=== PATIENT | male | born 1965 | race Caucasian/White ===

== ENCOUNTER 2017-08-18 16:12 | Emergency (ER) | payer MEDICAID ==
[2017-08-18] MEDS: Sodium Chloride 0.9% 1,000 ML IV SCH ×2 (16:12→17:10)
[2017-08-18] MEDS ORDERED: Sodium Chloride 0.9% 10 ML Syringe FLUSH PRN (16:20)
[2017-08-18] MEDS ORDERED: Ondansetron 4 MG/2 ML SDV IVPUSH ONE (16:20)
--- NOTE | 2017-08-18 17:20 | EDM.PDOC ---
ED HPI GENERAL MEDICAL PROBLEM - General Chief Complaint: General Stated Complaint: diaphoretic headache Time Seen by Provider: 08/18/17 16:12 Source of Information: Reports: Patient, Family History Limitations: Reports: No Limitations - History of Present Illness INITIAL COMMENTS - FREE TEXT/NARRATIVE: Patient is a 52 year old man with a history of Paroxysmal Atrial Fibrillation according to patient and his . He is on metoprolol for the palpitations that occur with the atrial fibrillation. Today at 14:30 he was working on a tractor in his shop when he had an acute onset of severe headache, chest pressure, severe diaphoresis, dyspnea and radiation of the chest pressure down the left arm. He did get better with the headache and dizzyness when he laid down on the cart in the ED. He also had nausea associated with his symptoms. Onset: Today, Sudden Onset Date: 08/18/17 Onset Time: 14:30 Duration: Hour(s): (2), Constant Location: Reports: Head, Chest Quality: Reports: Ache (Headache.), Pressure (Chest) Severity: Severe Improves with: Reports: Rest Worsens with: Reports: Movement Context: Reports: Other (History of Atrial Fibrillation.) Associated Symptoms: Reports: Chest Pain (Pressure radiating into left arm.), Nausea/Vomiting, Shortness of Breath - Related Data Allergies Allergy/AdvReac Type Severity Reaction Status Date / Time No Known Allergies Allergy Verified 11/10/13 17:59 Home Meds: Home Meds Metoprolol Tartrate [Lopressor] 25 mg PO Q12HR #60 tab 11/11/13 [Rx] Social & Family History - Tobacco Use Years of Tobacco use: 20 Used Tobacco, but Quit: No Second Hand Smoke Exposure: No - Alcohol Use Days Per Week of Alcohol Use: 7 Number of Drinks Per Day: 4 Total Drinks Per Week: 28 - Recreational Drug Use Recreational Drug Use: Yes Drug Use in Last 12 Months: Yes Recreational Drug Type: Reports: Marijuana/Hashish Recreational Drug Use Frequency: Socially ED ROS GENERAL - Review of Systems Review Of Systems: See Below Constitutional: Reports: Diaphoresis HEENT: Reports: Vertigo, Other (Headache.) Respiratory: Reports: Shortness of Breath Cardiovascular: Reports: Chest Pain (Chest pressure radiating to the left arm.) Endocrine: Reports: No Symptoms GI/Abdominal: Reports: Nausea : Reports: No Symptoms Musculoskeletal: Reports: No Symptoms Skin: Reports: No Symptoms Neurological: Reports: Headache Psychiatric: Reports: No Symptoms Hematologic/Lymphatic: Reports: No Symptoms ED EXAM, GENERAL - Physical Exam Exam: See Below Exam Limited By: No Limitations General Appearance: Alert, WD/WN, No Apparent Distress Eye Exam: Bilateral Eye: EOMI, Normal Fundi, Normal Inspection, PERRL Ears: Normal External Exam, Normal Canal, Hearing Grossly Normal, Normal TMs Ear Exam: Bilateral Ear: Auricle Normal, Canal Normal, TM normal Nose: Normal Inspection, Normal Mucosa, No Blood Throat/Mouth: Normal Inspection, Normal Lips, Normal Teeth, Normal Gums, Normal Oropharynx, Normal Voice, No Airway Compromise Head: Atraumatic, Normocephalic Neck: Normal Inspection, Supple, Non-Tender, Full Range of Motion Respiratory/Chest: No Respiratory Distress, Lungs Clear, Normal Breath Sounds, No Accessory Muscle Use, Chest Non-Tender Cardiovascular: Normal Peripheral Pulses, No Edema, No Gallop, No JVD, No Murmur , No Rub, Bradycardia Peripheral Pulses: 2+: Posterior Tibial (L), Posterior Tibial (R), Dorsalis Pedis (L), Dorsalis Pedis (R) GI/Abdominal: Normal Bowel Sounds, Soft, Non-Tender, No Organomegaly, No Distention, No Abnormal Bruit, No Mass Back Exam: Normal Inspection, Full Range of Motion, NT Extremities: Normal Inspection, Normal Range of Motion, Non-Tender, Normal Capillary Refill, No Pedal Edema Neurological: Alert, Oriented, CN II-XII Intact, Normal Cognition, Normal Gait, Normal Reflexes, No Motor/Sensory Deficits Psychiatric: Normal Affect, Normal Mood Skin Exam: Warm, Dry, Intact, Normal Color, No Rash Lymphatic: No Adenopathy EKG INTERPRETATION EKG Date: 08/18/17 Rhythm: NSR Rate (Beats/Min): 50 Clawson: Normal P-Wave: Variable QRS: RBBB (Incomplete.) ST-T: Normal QT: Normal Comparison: NA - No Prior EKG Course - Vital Signs Text/Narrative:: Uneventful ED course. He improved with IV fluids, Aspirin and close monitoring. His headache got much better once he laid down and closed his eyes. His EKG showed variable p waves and his heart rate went down to 40. His chest pressure got better during the visit. He was accepted in transfer by [facility] to [facility] for further evaluation and treatment in the ICU by the hospitalist and camp director. - Orders/Labs/Meds Orders: Active Orders 24 hr Category Date Time Status EKG Documentation Completion [RC] ASDIRECTED Care 08/18/17 16:19 Active Chest 1V Frontal [CR] Stat Exams 08/18/17 16:17 Taken Sodium Chloride 0.9% [Normal Saline] 1,000 ml Med 08/18/17 16:30 Active IV ASDIRECTED Sodium Chloride 0.9% [Saline Flush] Med 08/18/17 16:20 Active 10 ml FLUSH ASDIRECTED PRN Saline Lock Insert [OM.PC] Routine Oth 08/18/17 16:20 Ordered Medication Orders Sodium Chloride (Normal Saline) 1,000 mls @ 1,000 mls/hr IV ASDIRECTED NOREEN Sodium Chloride (Saline Flush) 10 ml FLUSH ASDIRECTED PRN PRN Reason: Keep Vein Open Labs: Laboratory Tests 08/18/17 08/18/17 Range/Units 16:15 16:15 WBC 9.9 D (4.0-11.0) K/uL RBC 5.09 (4.50-6.50) M/uL Hgb 15.1 (13.0-18.0) g/dL Hct 44.3 (40.0-54.0) % MCV 87 (76-96) fL MCH 29.7 (27.0-32.0) pg MCHC 34.1 (31.0-35.0) g/dL RDW 13.6 (11.0-16.0) % Plt Count 248 (150-400) K/uL MPV 8.8 (6.0-10.0) fL Neut % (Auto) 56.9 (45.0-70.0) % Lymph % (Auto) 31.7 (20.0-40.0) % Gregory % (Auto) 9.9 (3.0-10.0) % Eos % (Auto) 1.2 (1.0-5.0) % Baso % (Auto) 0.3 (0.0-0.5) % Neut # (Auto) 5.61 (2.00-7.50) K/uL Lymph # (Auto) 3.13 (1.50-4.00) K/uL Gregory # (Auto) 0.98 H (0.20-0.80) K/uL Eos # (Auto) 0.12 (0.04-0.40) K/uL Baso # (Auto) 0.03 (0.02-0.10) K/uL Sodium 144 (136-145) mmol/L Potassium 3.5 (3.5-5.1) mmol/L Chloride 107 (98-107) mmol/L Carbon Dioxide 24.5 (21.0-32.0) mmol/L Anion Gap 16.0 H (5.0-15.0) mmol/L BUN 22 D (8-26) mg/dL Creatinine 1.22 D (0.70-1.30) mg/dL Est Cr Clr Drug Dosing TNP Estimated GFR (MDRD) > 60 (>60) MLS/MIN BUN/Creatinine Ratio 18.0 (6-25) Glucose 134 H (74-100) mg/dL Calcium 8.5 (8.5-10.1) mg/dL Total Bilirubin 0.6 (0.0-1.0) mg/dL AST 22 (15-37) U/L ALT 25 (12-78) U/L Alkaline Phosphatase 58 (46-116) U/L Troponin I < 0.017 (0.000-0.060) ng/mL Total Protein 6.7 (6.4-8.2) g/dL Albumin 3.7 (3.4-5.0) g/dL Globulin 3.0 (2.2-4.2) g/dL Albumin/Globulin Ratio 1.2 (0.8-2.0) Meds: Medications Generic Name Dose Route Start Last Admin Trade Name Freq PRN Reason Stop Dose Admin Sodium Chloride 1,000 mls @ 1,000 mls/hr 08/18/17 16:30 Normal Saline IV ASDIRECTED NOREEN Sodium Chloride 10 ml 08/18/17 16:20 Saline Flush FLUSH ASDIRECTED PRN Keep Vein Open Discontinued Medications Generic Name Dose Route Start Last Admin Trade Name Freq PRN Reason Stop Dose Admin Ondansetron HCl 4 mg 08/18/17 16:20 Zofran IVPUSH 08/18/17 16:21 ONETIME ONE Departure - Departure Time of Disposition: 17:28 Disposition: DC/Tfer to Hospice - Home 50 Condition: Fair Clinical Impression: Angina pectoris, unstable, Diaphoresis - Discharge Information Referrals: PCP,None [Primary Care Provider] - - My Orders Last 24 Hours: My Active Orders 08/18/17 16:17 Chest 1V Frontal [CR] Stat 08/18/17 16:19 EKG Documentation Completion [RC] ASDIRECTED 08/18/17 16:20 Sodium Chloride 0.9% [Saline Flush] 10 ml FLUSH ASDIRECTED PRN Saline Lock Insert [OM.PC] Routine 08/18/17 16:30 Sodium Chloride 0.9% [Normal Saline] 1,000 ml IV ASDIRECTED - Assessment/Plan Last 24 Hours: My Active Orders 08/18/17 16:17 Chest 1V Frontal [CR] Stat 08/18/17 16:19 EKG Documentation Completion [RC] ASDIRECTED 08/18/17 16:20 Sodium Chloride 0.9% [Saline Flush] 10 ml FLUSH ASDIRECTED PRN Saline Lock Insert [OM.PC] Routine 08/18/17 16:30 Sodium Chloride 0.9% [Normal Saline] 1,000 ml IV ASDIRECTED
--- NOTE | 2017-08-18 23:32 | CR ---
DATE OF SERVICE: 08/18/2017 CLINICAL DATA: Chest pressure and severe headache. AP PORTABLE CHEST: Comparison is made to a prior exam dated 04/12/2016. The heart size is normal. The aorta is ectatic. The lungs are clear. No pneumothorax. No pleural effusions. No evidence of acute intrathoracic disease. [id number] [facility]
== END 2017-08-18 17:30 | disposition hospice, home (50) ==
LOC: LB.ED 16:12
DX: I20.0 Unstable angina (principal); I48.0 Paroxysmal atrial fibrillation; Z79.899 Other long term (current) drug therapy
CPT/HCPCS: 36415; 71045; 80053; 84484; 85025; 93005; 96374; 99284; J2405; J7040

== ENCOUNTER 2023-10-09 05:34 | Emergency (ER) | payer MEDICAID ==
[2023-10-09 06:32] LABS: BASOPHILS ABSOLUTE AUTO 0.11 K/uL (0.02-0.10); EOSINOPHILS ABSOLUTE AUTO 1.21 K/uL (0.04-0.40); EOSINOPHILS PERCENT AUTO 22.5 % (1.0-5.0); HEMATOCRIT 39.3 % (40.0-54.0); HEMOGLOBIN 13.2 g/dL (13.0-18.0); LYMPHOCYTES ABSOLUTE AUTO 1.01 K/uL (1.50-4.00); LYMPHOCYTES PERCENT AUTO 18.8 % (20.0-40.0); MEAN CORPUSCULAR HEMOGLOBIN 33.4 pg (27.0-32.0); MEAN CORPUSCULAR HGB CONC 33.6 g/dL (31.0-35.0); MEAN CORPUSCULAR VOLUME 100 fL (76-96); MEAN PLATELET VOLUME 8.8 fL (6.0-10.0); MONOCYTES ABSOLUTE AUTO 0.63 K/uL (0.20-0.80); MONOCYTES PERCENT AUTO 11.7 % (3.0-10.0); NEUTROPHILS ABSOLUTE AUTO 2.42 K/uL (2.00-7.50); PLATELET COUNT,PLT 138 K/uL (150-400); RED BLOOD CELL COUNT 3.95 M/uL (4.50-6.50); RED CELL DISTRIBUTION WIDTH 14.3 % (11.0-16.0); WHITE BLOOD CELL COUNT,WBC 5.4 K/uL (4.0-11.0)
[2023-10-09] MEDS: Benzonatate 100 MG Cap PO ONE (06:37)
[2023-10-09 06:47] LABS: A/G RATIO 1.2 (0.8-2.0); ALBUMIN 3.7 g/dL (3.4-5.0); ANION GAP 12.4 mmol/L (5.0-15.0); BILIRUBIN TOTAL 0.8 mg/dL (0.0-1.0); BUN/CREATININE RATIO 21.2 (6-25); CALCIUM 8.5 mg/dL (8.5-10.1); CARBON DIOXIDE,CO2 27.4 mmol/L (21.0-32.0); CREATININE 0.85 mg/dL (0.70-1.30); EST CRCL DRUG DOSING (CG) 96.62 mL/min; POTASSIUM,K 3.8 mmol/L (3.5-5.1); PROTEIN TOTAL,TP 6.7 g/dL (6.4-8.2)
[2023-10-09] MEDS ORDERED: Albuterol 6.7 GM Inhaler INH ONE (07:00)
[2023-10-09] MEDS ORDERED: Azithromycin 250 MG Tab ONE (07:00)
[2023-10-09 07:10] LABS: INFLUENZA A NAA NEGATIVE (NEGATIVE); INFLUENZA B NAA NEGATIVE (NEGATIVE); RESPIRATORY SYNCYTIAL VIR NAA NEGATIVE (NEGATIVE)
[2023-10-09 07:15] LABS: CORONAVIRUS COVID-19 NAA NEGATIVE (NEGATIVE)
== END 2023-10-09 07:32 | disposition home or self-care (01) ==
LOC: LB.ED 05:34
DX: R55 Syncope and collapse (principal); I10 Essential (primary) hypertension; Z79.82 Long term (current) use of aspirin; Z79.899 Other long term (current) drug therapy
CPT/HCPCS: 0241U; 36415; 71045; 80053; 85025; 99284; A9270-GY

== ENCOUNTER 2023-12-02 17:11 | Emergency (ER) | payer MEDICAID ==
[2023-12-02] MEDS: Albuterol/Ipratropium 3.0-0.5 MG/3 ML Neb Soln NEB ONE (17:48)
[2023-12-02] MEDS: methylPREDNISolone Sodium Succinate 125 MG/2 ML SDV IM ONE (18:00)
[2023-12-02 18:09] LABS: BASOPHILS ABSOLUTE AUTO 0.05 K/uL (0.02-0.10); EOSINOPHILS ABSOLUTE AUTO 0.07 K/uL (0.04-0.40); EOSINOPHILS PERCENT AUTO 1.4 % (1.0-5.0); HEMATOCRIT 43.1 % (40.0-54.0); HEMOGLOBIN 14.9 g/dL (13.0-18.0); LYMPHOCYTES ABSOLUTE AUTO 0.79 K/uL (1.50-4.00); LYMPHOCYTES PERCENT AUTO 15.4 % (20.0-40.0); MEAN CORPUSCULAR HEMOGLOBIN 33.5 pg (27.0-32.0); MEAN CORPUSCULAR HGB CONC 34.6 g/dL (31.0-35.0); MEAN CORPUSCULAR VOLUME 97 fL (76-96); MEAN PLATELET VOLUME 8.7 fL (6.0-10.0); MONOCYTES ABSOLUTE AUTO 0.81 K/uL (0.20-0.80); MONOCYTES PERCENT AUTO 15.8 % (3.0-10.0); NEUTROPHILS PERCENT AUTO 66.4 % (45.0-70.0); RED BLOOD CELL COUNT 4.45 M/uL (4.50-6.50); RED CELL DISTRIBUTION WIDTH 14.4 % (11.0-16.0); WHITE BLOOD CELL COUNT,WBC 5.1 K/uL (4.0-11.0)
[2023-12-02 18:16] LABS: PLATELET COUNT,PLT 111 K/uL (150-400)
[2023-12-02 18:20] LABS: A/G RATIO 1.1 (0.8-2.0); ALBUMIN 4.1 g/dL (3.4-5.0); ANION GAP 15.2 mmol/L (5.0-15.0); BILIRUBIN TOTAL 0.3 mg/dL (0.0-1.0); CALCIUM 8.6 mg/dL (8.5-10.1); CARBON DIOXIDE,CO2 24.6 mmol/L (21.0-32.0); EST CRCL DRUG DOSING (CG) 82.13 mL/min; POTASSIUM,K 3.8 mmol/L (3.5-5.1); PROTEIN TOTAL,TP 7.8 g/dL (6.4-8.2)
[2023-12-02] MEDS: Amoxicillin/Clavulanate K 875-125 MG Tab PO ONE (19:07)
[2023-12-02] MEDS: Amoxicillin/Clavulanate K 875-125 MG Tab ONE (19:15)
[2023-12-04] MEDS: methylPREDNISolone Sodium Succinate 125 MG/2 ML SDV ONE (08:05)
== END 2023-12-02 19:15 | disposition home or self-care (01) ==
LOC: LB.ED 17:11
DX: J40 Bronchitis, not specified as acute or chronic (principal); I10 Essential (primary) hypertension; I48.91 Unspecified atrial fibrillation; E78.00 Pure hypercholesterolemia, unspecified; Z87.891 Personal history of nicotine dependence; Z79.899 Other long term (current) drug therapy; Z79.82 Long term (current) use of aspirin
CPT/HCPCS: 36415; 71045; 80053; 85025; 94640; 96372; 99285; A9270; J2919; J7620

== ENCOUNTER 2024-05-26 10:21 | Emergency (ER) | payer OTHER ==
[2024-05-26] MEDS ORDERED: Sodium Chloride 0.9% 10 ML Syringe FLUSH PRN ×2 (10:49→11:01)
[2024-05-26] MEDS: Propranolol 20 MG Tab PO ONE (11:07)
[2024-05-26] MEDS: Diazepam 10 MG Tab PO ONE ×2 (11:07→16:57)
[2024-05-26 11:08] LABS: HEMATOCRIT 46.5 % (40.0-54.0); HEMOGLOBIN 15.9 g/dL (13.0-18.0); MEAN CORPUSCULAR HGB CONC 34.2 g/dL (31.0-35.0); MEAN PLATELET VOLUME 10.1 fL (6.0-10.0); RED BLOOD CELL COUNT 4.67 M/uL (4.50-6.50); RED CELL DISTRIBUTION WIDTH 15.6 % (11.0-16.0); WHITE BLOOD CELL COUNT,WBC 5.5 K/uL (4.0-11.0)
[2024-05-26] MEDS: Diazepam 5 MG Tab ONE (11:08)
[2024-05-26] MEDS ORDERED: Multivitamin Tab PO SCH (11:15)
[2024-05-26 11:40] LABS: A/G RATIO 1.2 (0.8-2.0); ALBUMIN 4.3 g/dL (3.4-5.0); BILIRUBIN TOTAL 0.6 mg/dL (0.0-1.0); BUN/CREATININE RATIO 19.3 (6-25); CALCIUM 8.7 mg/dL (8.5-10.1); CARBON DIOXIDE,CO2 21.9 mmol/L (21.0-32.0); CREATININE 0.88 mg/dL (0.70-1.30); EST CRCL DRUG DOSING (CG) 92.17 mL/min; MAGNESIUM 1.9 mg/dL (1.8-2.4); POTASSIUM,K 3.9 mmol/L (3.5-5.1); TSH ULTRASENSITIVE 0.59 uIU/mL (0.358-3.740)
[2024-05-26] MEDS: Folic Acid 1 MG Tab PO ONE (11:50)
[2024-05-26] MEDS: Thiamine 100 MG Tab PO ONE (11:50)
[2024-05-26 12:00] LABS: AMPHETAMINES SCREEN, URINE NEGATIVE (NEGATIVE); BARBITURATE SCREEN,URINE NEGATIVE (NEGATIVE); BENZODIAZEPINES SCREEN,URINE NEGATIVE (NEGATIVE); METHADONE SCREEN, URINE NEGATIVE (NEGATIVE); METHAMPHETAMINES SCREEN, URINE NEGATIVE (NEGATIVE); OXYCODONE SCREEN,URINE NEGATIVE (NEGATIVE); THC SCREEN,URINE 50 NG/ML POSITIVE (NEGATIVE)
[2024-05-26] MEDS: Hydrochlorothiazide 25 MG Tab PO ONE (16:55)
[2024-05-26] MEDS: Verapamil 120 MG Tab.ER PO ONE (16:56)
[2024-05-26] MEDS: QUEtiapine 25 MG Tab PO ONE (16:57)
[2024-05-26] MEDS: Losartan 50 MG Tab PO ONE (16:57)
== END 2024-05-26 17:04 | disposition home or self-care (01) ==
LOC: LB.ED 10:21
DX: F10.10 Alcohol abuse, uncomplicated (principal); I10 Essential (primary) hypertension; E78.00 Pure hypercholesterolemia, unspecified; Z79.82 Long term (current) use of aspirin; Z79.899 Other long term (current) drug therapy
CPT/HCPCS: 36415; 80053; 80307; 83735; 84443; 85027; 99284; A9270